=== PATIENT | male | born 1960 | race Caucasian/White ===

== ENCOUNTER 2017-12-17 06:05 | Day surgery (SDC) | payer BC ==
[~2017-12-17 06:05] MED LIST: Lactated Ringers 1,000 ML IV SCH
[2017-12-17] MEDS ORDERED: ROBINUL IV ONE (06:06)
[2017-12-17] MEDS ORDERED: DIPRIVAN 200 MG/20 ML IV ONE (06:06)
[2017-12-17] MEDS ORDERED: Ketamine HCl 50 MG/ML IV ONE (06:06)
[2017-12-17] MEDS ORDERED: ATROPINE SULFATE 1MG IV ONE (06:06)
[2017-12-17 09:04] VITALS: O2SAT 99
[2017-12-17 09:11] VITALS: BP 151/87; PULSE 45
--- NOTE | 2017-12-17 11:39 | OP ---
SURGERY DATE/TIME: 12/17/2017 0750 PREOPERATIVE DIAGNOSIS: Screening exam. POSTOPERATIVE DIAGNOSIS: Normal colon. PROCEDURE: Colonoscopy. SURGEON: Dr. Calderon. ANESTHESIA: MAC. Medications given by anesthesia department. HISTORY: The patient is a 57 year-old white male patient presenting now for his first colonoscopy. He was appraised of the risks of the procedure including the risk of perforation, phlebitis, untoward reaction to medication, bleeding and missed lesions. The patient verbalized his understanding and desired to have the procedure performed. DESCRIPTION OF PROCEDURE: The patient was given the medications by the anesthesia department. He had continuous pulse oximetry, ECG monitoring, intermittent blood pressure monitoring, and tidal CO2 monitoring during the examination. He was placed in the left lateral decubitus position. A digital rectal examination was performed and revealed normal anal sphincter tone and no masses, no hemorrhoids and a normal prostate. The flexible Olympus pediatric colonoscope was used to intubate the rectum. A view of the colon was developed sequentially to the cecum. Upon insertion and withdrawal, including a retroflex view in the rectum, no mucosal lesions were encountered. The scope was removed from the patient who tolerated the procedure well and was sent back to OP recovery in good condition. The prep was noted to be fair.
== END 2017-12-17 09:21 | disposition home or self-care (01) ==
LOC: SDC 06:05
PROVIDERS: ATTEND Family Medicine
DX: Z12.11 Encounter for screening for malignant neoplasm of colon (principal); I10 Essential (primary) hypertension; E78.5 Hyperlipidemia, unspecified
CPT/HCPCS: J0461; J2704

== ENCOUNTER 2023-12-24 16:31 | Emergency (ER) | payer BC ==
[2023-12-24 16:55] VITALS: BP 156/83; PULSE 64; RESP 18; TEMP 97.4; O2SAT 98
[2023-12-24] MEDS ORDERED: TORAdol 30 mg Injection ONE (16:59)
[2023-12-24] MEDS: TORAdol 30 mg Injection IM ONE (17:01)
--- NOTE | 2023-12-24 17:01 | ERPHSYRPT ---
- History of Present Illness Time Seen by Provider: 12/24/23 16:57 Source: patient Exam Limitations: no limitations Patient Subjective Stated Complaint: pt here for pain to right hand and right shoulder after a fall today on a garden wall. Triage Nursing Assessment: pt alert, walked in, resp easy, skin w/d/p.no brusing or abrasions noted. has open 2 lacerations to left index finger. no bleeding at present time, nail beds pink Physician History: 63-year-old male presents to our ED for evaluation status post fall. Patient states he was gardening and tripped. Patient has pain to his left fifth digit. There is some deformity and bleeding possibly open fracture. No BHT or LOC. No neck pain. Cervical spine cleared clinically. Patient has some tenderness to the right rhomboid musculature. No blunt trauma however patient likely strained his back during his fall. Injury occurred just prior to arrival. Pain described as an ache that is localized. No radiation. Pain worse with movement and palpation. Pain improved with rest. Patient voices no other complaints or concerns at this time. The fall was mechanical and not associated with any neuro cardiovascular symptomology. No chest pain or shortness of breath. No nausea vomiting or diaphoresis. No numbness tingling or weakness. No loss of conscious/no syncope. Portions of this note were created with voice recognition technology. There may be grammatical, spelling, punctuation or sound alike errors Timing/Duration: today Severity: moderate Associated Symptoms: denies symptoms Allergies/Adverse Reactions: amoxicillin Allergy (Mild, Verified 12/24/23 16:44) Rash Home Medications: Lisinopril 20 mg [Zestril 20 MG] 20 mg PO DAILY 12/11/17 [History] Pravastatin Sodium [Pravachol] 40 mg PO DAILY 12/11/17 [History] PARoxetine HCL [Paroxetine HCl] 30 mg PO DAILY 12/24/23 [History] Hx Tetanus, Diphtheria Vaccination/Date Given: Yes Hx Influenza Vaccination/Date Given: No Hx Pneumococcal Vaccination/Date Given: Yes Immunizations Up to Date: Yes Travel Risk - International Travel Have you traveled outside of the country in past 3 weeks: No - Emerging Infectious Disease Are you exhibiting symptoms associated with any current EIDs: No - Review of Systems Constitutional: No Symptoms, No Fever, No Chills Eyes: No Symptoms Ears, Nose, & Throat: No Symptoms Respiratory: No Symptoms, No Cough, No Dyspnea Cardiac: No Symptoms, No Chest Pain, No Edema, No Syncope Abdominal/Gastrointestinal: No Symptoms, No Abdominal Pain, No Nausea, No Vomiting, No Diarrhea Genitourinary Symptoms: No Symptoms, No Dysuria Musculoskeletal: No Symptoms, No Back Pain, No Neck Pain Skin: No Symptoms, No Rash Neurological: No Symptoms, No Dizziness, No Focal Weakness, No Sensory Changes Psychological: No Symptoms Endocrine: No Symptoms Hematologic/Lymphatic: No Symptoms Immunological/Allergic: No Symptoms All Other Systems: Reviewed and Negative - Past Medical History Pertinent Past Medical History: Yes Neurological History: Other ENT History: No Pertinent History Cardiac History: High Cholesterol, Hypertension Respiratory History: No Pertinent History Endocrine Medical History: No Pertinent History Musculoskeletal History: Degenerative Disk Disease GI Medical History: No Pertinent History History: No Pertinent History Psycho-Social History: No Pertinent History Male Reproductive Disorders: No Pertinent History Other Medical History: SEEING NEUROLOGIST DUE TO CONCERNS REGARDING DEMENTIA/ALZHEIMERS DUE TO FAMILY HISTORY. CT OF HEAD SHOWED NO CHANGES BUT IS GOING TO GET FURTHER TESTING (ATN PROFILE). Alondra KNOX ALSO REPORTS ESSENTIAL TREMOR BUT NONE NOTED ON THIS DATE. ALSO MRI HAS BEEN ORDERED FOR LUMBAR SPINE. - Past Surgical History Past Surgical History: Yes Neuro Surgical History: No Pertinent History Cardiac: No Pertinent History Respiratory: No Pertinent History Gastrointestinal: Appendectomy Genitourinary: No Pertinent History Musculoskeletal: No Pertinent History Male Surgical History: No Pertinent History Other Surgical History: basil cell carcinoma / shoulder - Social History Smoking Status: Never smoker Exposure to second hand smoke: No Drug Use: none - Nursing Vital Signs Nursing Vital Signs: Initial Vital Signs Temperature 97.4 F 12/24/23 16:55 Pulse Rate 64 12/24/23 16:55 Respiratory Rate 18 12/24/23 16:55 Blood Pressure 156/83 12/24/23 16:55 O2 Sat by Pulse Oximetry 98 12/24/23 16:55 Pain Scale Pain Intensity 6 - Physical Exam General Appearance: no apparent distress, alert Eye Exam: PERRL/EOMI, eyes nml inspection Ears, Nose, Throat Exam: normal ENT inspection Neck Exam: normal inspection, full range of motion Respiratory Exam: normal breath sounds, lungs clear, airway intact, No respiratory distress Cardiovascular Exam: regular rate/rhythm, normal heart sounds, normal peripheral pulses Gastrointestinal/Abdomen Exam: soft, normal bowel sounds, No tenderness, No mass Back Exam: normal inspection, normal range of motion, other (Some tenderness to palpation at the right thoracic paraspinal specifically at the right rhomboid musculature), No CVA tenderness, No vertebral tenderness Extremity Exam: normal inspection, normal range of motion, pelvis stable Neurologic Exam: alert, oriented x 3, cooperative, normal mood/affect, sensation nml, No motor deficits Skin Exam: normal color, warm, dry, No rash Lymphatic Exam: No adenopathy SpO2 Interpretation: normal SpO2: 98 O2 Delivery: Room Air Procedures - Joint Reduction Time of Procedure: 17:30 Joint Reduction Site: Left, 5th digit Conscious Sedation: No Reduction Attempts: 1 Pre-Procedure Neurovascular Exam: neurovascular intact Post Procedure Neurovascular Exam: neurovascular intact Post Joint Reduction Film: joint reduced Progress: The involved joint was anesthetized locally using 1% lidocaine. Approximately 3 cc of lidocaine was used to anesthetize the area. The digit was neurovascular tact distally preprocedure. Patient's involved digit was neurovascular intact distally postprocedure. Patient tolerated procedure well. No intra or postprocedural complications. Portions of this note were created with voice recognition technology. There may be grammatical, spelling, punctuation or sound alike errors - Course Nursing assessment & vital signs reviewed: Yes - Radiology Exams Wrist X-ray Interpretation: Interpreted by me (Fifth PIP joint with distal phalanx posterior dislocation) Ordered Tests: Active Orders 24 hr Category Date Time Status HAND (MINIMUM 3 VIEWS) Stat Exams 12/24/23 16:44 Completed HAND (MINIMUM 3 VIEWS) Stat Exams 12/24/23 17:46 Taken Medication Summary Discontinued Medications Generic Name Dose Route Start Last Admin Trade Name Martha PRN Reason Stop Dose Admin Doxycycline Hyclate 100 mg 12/24/23 17:59 12/24/23 18:06 Doxycycline Hyclate 100 Mg Tablet PO 12/24/23 18:00 100 mg STAT ONE Administration Doxycycline Hyclate Confirm 12/24/23 18:05 Doxycycline Hyclate 100 Mg Tablet Administered 12/24/23 18:06 Dose 100 mg .ROUTE .STK-MED ONE Ketorolac Tromethamine 30 mg 12/24/23 16:53 12/24/23 17:01 Ketorolac Tromethamine 30 Mg/Ml Inj IM 12/24/23 16:54 30 mg STAT ONE Administration Ketorolac Tromethamine Confirm 12/24/23 16:59 Ketorolac Tromethamine 30 Mg/Ml Inj Administered 12/24/23 17:00 Dose 30 mg .ROUTE .STK-MED ONE - Progress Progress: improved Progress Note: 63-year-old male presents to our ED status post fall while gardening. Physical exam reveals a thoracic paraspinal musculature muscle strain. Patient also had an open finger dislocation. No indication for laceration repair. Please see procedure note. Finger was successfully reduced. No complications. Reduction confirmed on postreduction films. Patient reassessed. Pain significantly improved. The involved digit was immobilized. Patient referred to the orthopedic follow-up. 12/24/23 18:12 Complexity problem addressed is moderate acute complicated. No critical care time. Complex of data reviewed and analyzed is moderate. Test ordered test reviewed results analyzed and correlated clinically with history and physical examination. Dr. Hodge independently reviewed both images pre and postreduction. Risk of complication and or risk morbidity/mortality patient management is moderate. A prescription for doxycycline forwarded to patient's pharmacy. Vital stable. Time spent to discharge patient is approximately 20 minutes. Plan of care established for shared decision making. No social determinants of health present impede follow-up. Portions of this note were created with voice recognition technology. There may be grammatical, spelling, punctuation or sound alike errors Counseled pt/family regarding: diagnosis, need for follow-up, rad results - Departure Departure Disposition: Home Clinical Impression: Fall, Back strain, Open finger dislocation Condition: Stable Critical Care Time: No Referrals: DOREEN HUERTA [Primary Care Provider] - Follow up/PCP as directed Additional Instructions: Discharge/Care Plan JAGDISH BERNAL was seen on 12/24/23 in the Emergency Room. The patient was counseled regarding Diagnosis,Lab results, Imaging studies, need for follow up and when to return to the Emergency Room. Prescriptions given: Discharge Note I have spoken with the patient and/or caregivers. I have explained the patient's condition, diagnosis and treatment plan based on the information available to me at this time. I have answered the patient's and/or caregiver's questions and addressed any concerns. The patient and/or caregivers have as good understanding of the patient's diagnosis, condition and treatment plan as can be expected at this point. The vital signs have been stable. The patient's condition is stable and appropriate for discharge from the emergency department. The patient will pursue further outpatient evaluation with the primary care physician or other designated or consulting physician as outlined in the discharge instructions. The patient and/or caregivers are agreeable to this plan of care and follow-up instructions have been explained in detail. The patient and/or caregivers have received these instruction. The patient/and or caregivers are aware that any significant change in condition or worsening of symptoms should prompt an immediate return to this or the closest emergency department or call 911. Prescriptions: Doxycycline Hyclate 100 mg [Vibramycin 100 MG] 100 mg PO BID 5 Days #10 tab Outpatient Orders: Ortho Referral Time Frame: 1 Day, Facility: [facility], Location: [facility] Ortho Referral Time Frame: 1 Day, Facility: [facility], Location: [facility]
--- NOTE | 2023-12-24 17:03 | XRAY ---
Indication: Pain following fall. Comparison: None 3 view left hand demonstrates dislocation 5th PIP joint with distal phalanx dislocated posteriorly and soft tissue swelling. No other bony, articular, or soft tissue abnormalities.
[2023-12-24] MEDS ORDERED: Vibramycin 100 MG ONE (18:05)
[2023-12-24] MEDS: Vibramycin 100 MG PO ONE (18:06)
--- NOTE | 2023-12-25 08:35 | XRAY ---
Indication: Post reduction. Comparison: Taken earlier in the day. 3 view left hand obtained with new 5th finger splint. Successful reduction previous 5th PIP dislocation without obvious fracture. No other bony, articular, or soft tissue abnormalities.
== END 2023-12-24 18:27 | disposition home or self-care (01) ==
LOC: ED 16:31
DX: S63.297A Dislocation of distal interphalangeal joint of left little finger, initial encounter (principal); S61.217A Laceration without foreign body of left little finger without damage to nail, initial encounter; S29.012A Strain of muscle and tendon of back wall of thorax, initial encounter; W01.0XXA Fall on same level from slipping, tripping and stumbling without subsequent striking against object, initial encounter; Y93.H2 Activity, gardening and landscaping; Y92.007 Garden or yard of unspecified non-institutional (private) residence as the place of occurrence of the external cause; E78.5 Hyperlipidemia, unspecified; I10 Essential (primary) hypertension; Z79.899 Other long term (current) drug therapy
CPT/HCPCS: 26770; 73130; 96372; 99283; J1885; A9270-GY

== ENCOUNTER 2025-05-31 07:41 | Emergency (ER) | payer MEDICARE ==
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
[2025-05-31 09:18] VITALS: TEMP 97.8
[2025-05-31 09:26] LABS: BASOPHIL % 0.3 % (0.2-1.2); Basophil (Absolute #) 0.03 x10^3/uL (0.01-0.08); Eosinophil (Absolute #) 0.13 x10^3/uL (0.04-0.54); Hematocrit 43.8 % (40.1-51.0); Hemoglobin 14.1 g/dL (13.7-17.5); IMMATURE GRAN # 0.11 x10^3u/L (0.001-0.031); IMMATURE GRAN % 1.1 % (0.001-0.429); Lymphocyte (Absolute #) 1.17 x10^3/uL (1.32-3.57); Mean Corpuscular Hemoglobin 29.7 pg (25.7-32.2); Mean Corpuscular Hgb Concent. 32.2 g/dL (32.3-36.5); Monocyte (Absolute #) 0.67 x10^3/uL (0.30-0.82); NUCLEATED RBC # 0.00 x10^3u/L (0.00-0.012); NUCLEATED RBC % 0.0 % (0.00-0.2); Platelet Count 206 x10^3/uL (163-337); Red Blood Count 4.74 x10^6/uL (4.63-6.08); White Blood Count 9.8 x10^3/uL (4.23-9.07)
[2025-05-31 09:39] LABS: INR 0.91 (0.8-3.0); PROTIME 10.2 SECONDS (9.4-12.5)
[2025-05-31 09:40] LABS: Calcium 9.4 mg/dL (8.4-10.2); Carbon Dioxide 30 mmol/L (22-30); Creatinine 1 0.94 mg/dL (0.66-1.25); EST GLOMERULAR FILTRATION RATE 89.4 ML/MIN; ETHYL ALCOHOL < 10 mg/dL (0-10); Glucose 136 mg/dL (74-106); Potassium 4.3 mmol/L (3.5-5.1); SGOT/AST 40 U/L (17-59); SGPT/ALT 53 U/L (0-50); Total Protein 7.6 g/dL (6.3-8.2)
[2025-05-31 10:08] VITALS: BP 137/73; PULSE 53; RESP 18; O2SAT 97
== END 2025-05-31 10:30 | disposition home or self-care (01) ==
LOC: ED 07:41
DX: S06.0X1A Concussion with loss of consciousness of 30 minutes or less, initial encounter (principal); S00.81XA Abrasion of other part of head, initial encounter; V44.5XXA Car driver injured in collision with heavy transport vehicle or bus in traffic accident, initial encounter; M25.512 Pain in left shoulder; I10 Essential (primary) hypertension; Z79.899 Other long term (current) drug therapy